=== PATIENT | male | born 2005 | race Hispanic/Latino ===

== ENCOUNTER 2024-05-23 20:19 | Emergency (ER) | payer SELFPAY ==
[~2024-05-23] VITALS: Ht 170.2 cm; Wt 80.0 kg
[2024-05-23] VITALS (9 sets, daily range): BP systolic 96–128; BP diastolic 53–87
[2024-05-23] MEDS ORDERED: SODIUM CHLORIDE 0.9% 1,000 ML IV ONE ×2 (20:30)
[2024-05-23] MEDS ORDERED: ONDANSETRON HCl 4 MG/2 ML SDV IV ONE (20:30)
[2024-05-23] MEDS ORDERED: METOCLOPRAMIDE HCL 10 MG/2 ML SDV IV ONE (20:30)
[2024-05-23] MEDS ORDERED: DiphenhydrAMINE HCL 50 MG/ML SDV IV ONE (20:30)
[2024-05-23 20:50] LABS: BASO% 0.4 % (0-3); EOS% 1.1 % (0-8); HEMATOCRIT 43.7 % (39.0-50.0); HEMOGLOBIN 15.3 g/dl (14.0-18.0); IMMATURE GRANULOCYTES 0.6 % (0.0-5.0); LYMPH% 28.2 % (15-41); MEAN CORPUSCULAR HGB 32.9 pG CALC (26.0-32.0); MONO% 8.3 % (2-13); NEUT# 6.99 thou/uL (1.82-7.42); NEUT% 61.4 % (42-76); RED BLOOD COUNT 4.65 mill/uL (4.70-6.10); RED CELL DISTRI WIDTH 11.6 % (11.5-15.5)
[2024-05-23 21:04] LABS: ALBUMIN 4.8 g/dL (3.2-5.0); BILIRUBIN, TOTAL 0.7 mg/dL (0.2-1.3); POTASSIUM 3.6 mmol/l (3.5-5.1)
[2024-05-23] MEDS ORDERED: ZOFRAN4 MG/TAB PO (21:52)
== END 2024-05-23 22:11 | disposition home or self-care (01) | DRG 392 ==
LOC: ED 20:19
PROVIDERS: Emergency Medicine
DX: K52.9 Noninfective gastroenteritis and colitis, unspecified (principal); Z20.822 Contact with and (suspected) exposure to COVID-19